=== PATIENT | male | born 1975 | race Caucasian/White ===

== ENCOUNTER 2016-11-17 00:25 | Emergency (ER) | payer BC ==
[~2016-11-17] VITALS: Ht 154.9 cm; Wt 94.2 kg
[~2016-11-17 00:25] MED LIST: ACIDTAB4 PO; ADVAI250I PO; ALBU1AER INH; AMLO5TAB22 PO; AZIT250T74 PO; BENZ1CAP34 PO; CEFT500T PO; IBUP600 PO; OXYC1SOL5 PO; PRED10 PO; ROBIACUDC PO; ZOLP10TA3 PO
[2016-11-17 00:34] VITALS: BP 161/111; PULSE 101; RESP 18; TEMP 98.1; O2SAT 98
[2016-11-17] MEDS ORDERED: SYMB80AE INH (01:06)
[2016-11-17] MEDS ORDERED: AMLO10TA2 PO (01:06)
[2016-11-17] MEDS ORDERED: ARIP1TAB7 PO (01:06)
[2016-11-17] MEDS ORDERED: PROZ20CA11 PO (01:06)
[2016-11-17] MEDS ORDERED: BUPR100CR PO (01:06)
[2016-11-17 01:10] VITALS: BP 161/111; PULSE 101; RESP 18; TEMP 98.1; O2SAT 98
[2016-11-17 01:20] VITALS: O2SAT 98
[2016-11-17] MEDS ORDERED: FAMOTIDINE 20 MG/2 ML VIAL IV PUSH ONE (01:30)
[2016-11-17] MEDS ORDERED: methylPREDNISolone SOD SUCC 125 MG/2 ML VIAL IM ONE (01:30)
[2016-11-17] MEDS ORDERED: SODIUM CHLORIDE 0.9% FLUSH 10 ML FLUSH IV FLUSH PRN (01:30)
[2016-11-17] MEDS ORDERED: diphenhydrAMINE HCL 50 MG/ML VIAL IVP ONE (01:30)
[2016-11-17 02:05] LABS: AUTOMATED NEUTROPHIL # 4.9 TH/MM3 (1.8-7.7); BASOPHIL # 0.1 TH/MM3 (0-0.2); BASOPHIL % 0.7 % (0.0-2.0); CHLORIDE 100 MEQ/L (98-107); EOSINOPHIL # 0.8 TH/MM3 (0-0.4); HEMO FLAGS DIFF FINAL; LYMPH % 17.5 % (9.0-44.0); LYMPHOCYTE # 1.4 TH/MM3 (1.0-4.8); MEAN CELL VOLUME 91.6 FL (80.0-100.0); MEAN CORPUSCULAR HEMOGLOBIN 31.7 PG (27.0-34.0); MEAN CORPUSCULAR HGB CONC 34.6 % (32.0-36.0); MONO % 9.5 % (0.0-8.0); NEUT % 62.3 % (16.0-70.0); PLATELET COUNT 328 TH/MM3 (150-450); POTASSIUM 3.7 MEQ/L (3.5-5.1); RED BLOOD COUNT 5.12 MIL/MM3 (4.50-5.90); RED CELL DISTRIBUTION WIDTH 12.1 % (11.6-17.2); SODIUM (NA) 137 MEQ/L (136-145)
[2016-11-17 02:09] LABS: ANION GAP 9 MEQ/L (5-15); BICARBONATE 27.7 MEQ/L (21.0-32.0); BLOOD UREA NITROGEN 12 MG/DL (7-18)
[2016-11-17 02:12] LABS: ALT (GPT) 33 U/L (12-78); AST (GOT) 26 U/L (15-37); GLOMERULAR FILTRATION RATE 92 ML/MIN (>89)
[2016-11-17 02:14] LABS: TOTAL BILIRUBIN ADULT 0.4 MG/DL (0.2-1.0)
[2016-11-17 02:15] LABS: ALKALINE PHOSPHATASE 63 U/L (45-117)
[2016-11-17] MEDS ORDERED: MEDR4PAK PO (02:56)
[2016-11-17] MEDS ORDERED: ZANT300T PO (02:56)
--- NOTE | 2016-11-17 03:01 | PD ---
HPI Chief Complaint: Skin Problem Time Seen by Provider: 01:30 Travel History International Travel<30 days: No Contact w/Intl Traveler<30days: No Traveled to known affect area: No History of Present Illness HPI 41-year-old male with one day of generalized pruritus and erythematous rash of uncertain etiology. No hives no lip tongue or throat swelling no shortness of breath no wheezing. Patient denies any recent antibiotic use or any medication use. Patient denies any known contact any new medications detergents lotions creams chemicals furniture clothing or plants. PFSH Past Medical History Narrative Medical Arthritis asthma depression hypertension migraines pneumonia occasional alcohol use nursing notes reviewed Arthritis: Yes (BACK,HANDS,HIPS,KNEES) Asthma: Yes Depression: Yes Cancer: No Cardiovascular Problems: Yes Diminished Hearing: No Endocrine: No Genitourinary: No Hypertension: Yes Immune Disorder: No Implanted Vascular Access Dvce: No Musculoskeletal: Yes Neurologic: Yes Psychiatric: Yes Reproductive: No Respiratory: Yes Migraines: Yes (BAD MIGRANES ABOUT 10 YEARS AGO) Pneumonia: Yes Sickle Cell Disease: No Tetanus Vaccination: < 5 Years Influenza Vaccination: Yes Past Surgical History Surgical History: No Previous Surgery Body Medical Devices: BLOOD CLOT LEFT SHOULDER IN 2002 Other Surgery: No Social History Alcohol Use: Yes (SOCIAL) Tobacco Use: No Substance Use: No Allergies-Medications (Allergen,Severity, Reaction): Coded Allergies: No Known Allergies (Verified , 11/17/16) Reported Meds & Prescriptions Reported Meds & Active Scripts Active Reported Abilify (Aripiprazole) 20 Mg Tab 20 Mg PO DAILY Wellbutrin SR 12 HR (Bupropion HCl) 100 Mg Tab 100 Mg PO Q12HR Amlodipine (Amlodipine Besylate) 10 Mg Tab 25 Mg PO DAILY Prozac (Fluoxetine HCl) 20 Mg Cap 20 Mg PO DAILY Symbicort Inh (Budesonide/Formoterol Fumarate) 80-4.5 Mcg/Act Aero 2 Puff INH Q12HR Review of Systems Except as stated in HPI: all other systems reviewed are Neg General / Constitutional: No: Fever, Chills HENT: No: Congestion Cardiovascular: No: Chest Pain or Discomfort Respiratory: No: Shortness of Breath, Wheezing Gastrointestinal: No: Nausea, Vomiting, Abdominal Pain Genitourinary: No: Flank Pain Musculoskeletal: No: Myalgias, Arthralgias Skin: Positive Rash, Positive Itching, No Lumps, No Hives Neurologic: No: Weakness Psychiatric: No: Anxiety Endocrine: No: Heat Intolerance Hematologic/Lymphatic: No: Easy Bruising Physical Exam Narrative GENERAL: Well-developed well-nourished male in no acute distress no respiratory distress; no stridor no hoarseness SKIN: Warm and dry. Diffuse erythematous confluent rash with excoriation extending over the upper extremities trunk and lower extremities no urticaria no vesicles no pustules no petechia no purpura HEAD: Normocephalic. EYES: No scleral icterus. No injection or drainage. ENT: Mucous membranes moist , airway is patent, no swelling of the lip tongue or posterior pharynx NECK: Supple, trachea midline. No JVD or lymphadenopathy. CARDIOVASCULAR: Regular rate and rhythm without murmurs, gallops, or rubs. RESPIRATORY: Breath sounds equal bilaterally. No accessory muscle use. GASTROINTESTINAL: Abdomen soft, non-tender, nondistended. MUSCULOSKELETAL: No cyanosis, or edema. BACK: Nontender without obvious deformity. No CVA tenderness. Data Data Last Documented VS Vital Signs Date Time Temp Pulse Resp B/P (MAP) Pulse Ox O2 Delivery O2 Flow Rate FiO2 11/17/16 01:10 98.1 101 18 161/111 (128) 98 Orders Orders Complete Blood Count With Diff (11/17/16 01:30) Comprehensive Metabolic Panel (11/17/16 01:30) Ecg Monitoring (11/17/16 01:30) Iv Access Insert/Monitor (11/17/16 01:30) Oximetry (11/17/16 01:30) Diphenhydramine Inj (Benadryl Inj) (11/17/16 01:30) Methylprednisolone So Succ Inj (Solumedr (11/17/16 01:30) Famotidine Inj (Pepcid Inj) (11/17/16 01:30) Sodium Chloride 0.9% Flush (Ns Flush) (11/17/16 01:30) Labs Laboratory Tests Test 11/17/16 01:20 White Blood Count 8.0 TH/MM3 Red Blood Count 5.12 MIL/MM3 Hemoglobin 16.2 GM/DL Hematocrit 47.0 % Mean Corpuscular Volume 91.6 FL Mean Corpuscular Hemoglobin 31.7 PG Mean Corpuscular Hemoglobin Concent 34.6 % Red Cell Distribution Width 12.1 % Platelet Count 328 TH/MM3 Mean Platelet Volume 7.8 FL Neutrophils (%) (Auto) 62.3 % Lymphocytes (%) (Auto) 17.5 % Monocytes (%) (Auto) 9.5 % Eosinophils (%) (Auto) 10.0 % Basophils (%) (Auto) 0.7 % Neutrophils # (Auto) 4.9 TH/MM3 Lymphocytes # (Auto) 1.4 TH/MM3 Monocytes # (Auto) 0.8 TH/MM3 Eosinophils # (Auto) 0.8 TH/MM3 Basophils # (Auto) 0.1 TH/MM3 CBC Comment DIFF FINAL Differential Comment Blood Urea Nitrogen 12 MG/DL Creatinine 0.90 MG/DL Random Glucose 107 MG/DL Total Protein 8.5 GM/DL Albumin 4.5 GM/DL Calcium Level 9.4 MG/DL Alkaline Phosphatase 63 U/L Aspartate Amino Transf (AST/SGOT) 26 U/L Alanine Aminotransferase (ALT/SGPT) 33 U/L Total Bilirubin 0.4 MG/DL Sodium Level 137 MEQ/L Potassium Level 3.7 MEQ/L Chloride Level 100 MEQ/L Carbon Dioxide Level 27.7 MEQ/L Anion Gap 9 MEQ/L Estimat Glomerular Filtration Rate 92 ML/MIN [facility] Medical Decision Making Medical Screen Exam Complete: Yes Emergency Medical Condition: Yes Medical Record Reviewed: Yes Differential Diagnosis Allergic reaction allergic dermatitis adverse medication reaction contact dermatitis also to consider Guerrero-Jesus syndrome TEN no findings for anaphylaxis or angioedema Narrative Course Patient administered Benadryl Pepcid and Solu-Medrol with marked symptomatic improvement and diminished erythema Patient stable for outpatient management and follow-up with primary care provider Diagnosis Primary Impression: Allergic dermatitis Referrals: Primary Care Physician call for appointment Patient Instructions: General Instructions Departure Forms: Tests/Procedures, Work Release Special Instructions: no work x 2 days Additional Instructions: No work 2 days Follow-up with your primary care provider Take Benadryl 25-50 mg as often as every 4-6 hours for rash or itching Complete course of steroid as prescribed Complete course of Zantac as prescribed Avoid overheating Increase fluid hydration Return to the emergency department for any concerns or change in condition Med/Other Pt SpecificInfo: Prescription(s) given Scripts Ranitidine (Zantac) 300 Mg Tab 300 MG PO DAILY for 14 Days, #14 TAB 0 Refills Prov: Rachel Gabriel MD 11/17/16 Methylprednisolone Dosepak (Medrol Dosepak) 4 Mg Dspk 4 MG PO DIRECTED, #1 DSPK 0 Refills Per Pharmacist direction Prov: Rachel Gabriel MD 11/17/16 Disposition: 01 DISCHARGE HOME Condition: Stable Rachel Gabriel MD Nov 17, 2016 03:00
[2016-11-17 03:26] VITALS: BP 136/82
[2016-11-18] MEDS ORDERED: CETI10 PO (19:48)
[2016-11-18] MEDS ORDERED: QUET5TAB PO (19:48)
[2016-11-18] MEDS ORDERED: QUET1TAB7 PO (19:48)
== END 2016-11-17 03:30 | disposition home or self-care (01) ==
LOC: PHED 00:25
DX: L30.9 Dermatitis, unspecified (principal)
CPT/HCPCS: 80053; 85025; 96372; 96374; 96375; 99284; J1200; J2930

== ENCOUNTER 2016-11-18 19:17 | Emergency (ER) | payer BC ==
[~2016-11-18] VITALS: Ht 185.4 cm; Wt 95.0 kg
[~2016-11-18 19:17] MED LIST changes: -ACIDTAB4 PO; -ADVAI250I PO; -ALBU1AER INH; +AMLO10TA2 PO; -AMLO5TAB22 PO; +ARIP1TAB7 PO; -AZIT250T74 PO; -BENZ1CAP34 PO; +BUPR100CR PO; -CEFT500T PO; -IBUP600 PO; +MEDR4PAK PO; -OXYC1SOL5 PO; -PRED10 PO; +PROZ20CA11 PO; -ROBIACUDC PO; +SYMB80AE INH; +ZANT300T PO; -ZOLP10TA3 PO
[2016-11-18 19:26] VITALS: BP 181/102; PULSE 99; RESP 18; TEMP 97.8; O2SAT 98
[2016-11-18] MEDS ORDERED: CETI10 PO (19:48)
[2016-11-18] MEDS ORDERED: QUET5TAB PO (19:48)
[2016-11-18] MEDS ORDERED: QUET1TAB7 PO (19:48)
--- NOTE | 2016-11-18 20:37 | PD ---
HPI Chief Complaint: Allergic/Adverse Reaction Time Seen by Provider: 20:21 Travel History International Travel<30 days: No Contact w/Intl Traveler<30days: No Traveled to known affect area: No History of Present Illness HPI 41-year-old male with 2 day of generalized pruritus and erythematous rash of uncertain etiology. No hives no lip tongue or throat swelling no shortness of breath no wheezing. Patient denies any recent antibiotic use or any medication use. Patient was seen and evaluated on 11/17/16 for this rash. He was put on steroids, Benadryl, H2 blockers. He reports symptoms improved with these medication but then returned several hours ago after eating gummy bears. PFSH Past Medical History Arthritis: Yes (BACK,HANDS,HIPS,KNEES) Asthma: Yes Anxiety: Yes Depression: Yes Cardiovascular Problems: Yes Diminished Hearing: No Endocrine: No Genitourinary: No Hypertension: Yes Immune Disorder: No Implanted Vascular Access Dvce: No Musculoskeletal: Yes Neurologic: Yes Psychiatric: Yes Respiratory: Yes Migraines: Yes (BAD MIGRANES ABOUT 10 YEARS AGO) Pneumonia: Yes Sickle Cell Disease: No Tetanus Vaccination: < 5 Years Influenza Vaccination: No ?: Not Past Surgical History Surgical History: No Previous Surgery Body Medical Devices: BLOOD CLOT LEFT SHOULDER IN 2002 Social History Alcohol Use: Yes (SOCIAL) Tobacco Use: No Substance Use: No Allergies-Medications (Allergen,Severity, Reaction): Coded Allergies: No Known Allergies (Verified , 11/18/16) Reported Meds & Prescriptions Reported Meds & Active Scripts Active Zantac (Ranitidine HCl) 300 Mg Tab 300 Mg PO DAILY 14 Days Medrol Dosepak (Methylprednisolone) 4 Mg Dspk 4 Mg PO DIRECTED Per Pharmacist direction Reported Cetirizine (Cetirizine HCl) 10 Mg Tab 10 Mg PO DAILY Quetiapine (Quetiapine Fumarate) 50 Mg Tab 50 Mg PO HS Quetiapine (Quetiapine Fumarate) 25 Mg Tab 25 Mg PO DAILY Wellbutrin SR 12 HR (Bupropion HCl) 100 Mg Tab 300 Mg PO DAILY Amlodipine (Amlodipine Besylate) 10 Mg Tab 5 Mg PO DAILY Prozac (Fluoxetine HCl) 20 Mg Cap 20 Mg PO DAILY Symbicort Inh (Budesonide/Formoterol Fumarate) 80-4.5 Mcg/Act Aero 2 Puff INH Q12HR Review of Systems Except as stated in HPI: all other systems reviewed are Neg General / Constitutional: No: Fever Eyes: No: Visual changes HENT: No: Headaches Cardiovascular: No: Chest Pain or Discomfort Respiratory: No: Shortness of Breath Gastrointestinal: No: Abdominal Pain Genitourinary: No: Dysuria Skin: Positive Rash Neurologic: No: Weakness Physical Exam Narrative GENERAL: Well-nourished, well-developed patient. SKIN: Focused skin assessment warm/dry. Diffuse erythematous rash across the trunk, upper/lower extremities. The rash does not involve the palms of the face , hand or feet. No hives or urticaria. HEAD: Normocephalic. EYES: No scleral icterus. No injection or drainage. THROAT: No pharyngeal injection, exudates, or tonsillar hypertrophy. Airway is patent. NECK: Supple, trachea midline. No JVD or lymphadenopathy. No meningismus CARDIOVASCULAR: Regular rate and rhythm without murmurs, gallops, or rubs. RESPIRATORY: Breath sounds equal bilaterally. No accessory muscle use. GASTROINTESTINAL: Abdomen soft, non-tender, nondistended. MUSCULOSKELETAL: No cyanosis, or edema. BACK: Nontender without obvious deformity. No CVA tenderness. Data Data Last Documented VS Vital Signs Date Time Temp Pulse Resp B/P (MAP) Pulse Ox O2 Delivery O2 Flow Rate FiO2 11/18/16 19:26 97.8 99 18 181/102 (128) 98 Orders Orders Diphenhydramine Inj (Benadryl Inj) (11/18/16 20:45) Dexamethasone Inj (Decadron Inj) (11/18/16 20:45) MDM Medical Decision Making Medical Screen Exam Complete: Yes Emergency Medical Condition: Yes Differential Diagnosis Allergic reaction versus allergic contact dermatitis versus viral exanthema versus Guerrero-Jesus syndrome versus other Narrative Course 41-year-old male presents emergency department for evaluation of a pruritic erythematous rash for 2 days. Patient was evaluated in the emergency department yesterday where he was treated with steroids and Benadryl. According to the providers note and patient reports symptoms improved after this medications but returned this evening after eating gummy bears. Patient's chief complaint is as pruritic rash. He denies any oral swelling or shortness of breath or wheezing. Patient's vital signs are stable and he is nontoxic appearing. He will be given a shot of steroids and Benadryl in the ER and observed Patient observed in the emergency department he reports symptom improvement after Benadryl and steroids. Patient will be instructed to continue his current treatment regimen and follow-up with the baster hand. Diagnosis Primary Impression: Rash and nonspecific skin eruption Referrals: baster hand Additional Instructions: Continue the Medrol Dosepak. Continue the Benadryl 25-50 mg every 6 hours as needed for itching. Continue the Zantac. Make an appointment for follow-up with an baster hand for allergy testing. Avoid gummy bear candies or any food colored with dye. Return to the emergency department if he developed new or worsening symptoms. Disposition: 01 DISCHARGE HOME Condition: Stable Yarelis Feldman Nov 18, 2016 20:37
[2016-11-18] MEDS ORDERED: diphenhydrAMINE HCL 50 MG/ML VIAL IM ONE (20:45)
[2016-11-18] MEDS ORDERED: DEXAMETHASONE SOD PHOS 4 MG/ML VIAL IM ONE (20:45)
== END 2016-11-18 22:12 | disposition home or self-care (01) ==
LOC: PHEFT 19:17
DX: L29.9 Pruritus, unspecified (principal); I10 Essential (primary) hypertension; J45.909 Unspecified asthma, uncomplicated; F41.9 Anxiety disorder, unspecified; F32.9 Major depressive disorder, single episode, unspecified; Z79.899 Other long term (current) drug therapy
CPT/HCPCS: 96372; 99284; J1100; J1200

== ENCOUNTER 2016-12-28 01:02 | Emergency (ER) | payer BC ==
[~2016-12-28] VITALS: Ht 185.4 cm; Wt 96.8 kg
[~2016-12-28 01:02] MED LIST changes: -ARIP1TAB7 PO; +CETI10 PO; +QUET1TAB7 PO; +QUET5TAB PO
[2016-12-28 01:05] VITALS: BP 164/103; PULSE 107; RESP 20; TEMP 98.3; O2SAT 97
[2016-12-28 01:34] VITALS: BP 148/90; PULSE 85; RESP 16; O2SAT 99
--- NOTE | 2016-12-28 01:52 | RADRPT ---
EXAM DATE/TIME: 12/28/2016 01:35 [facility] COMPARISON: No previous studies available for comparison. INDICATIONS : Right foot pain. MEDICAL HISTORY : None. SURGICAL HISTORY : None. ENCOUNTER: Initial ACUITY: 2 days PAIN SCORE: 5/10 LOCATION: Right foot FINDINGS: Three view examination of the right foot demonstrates no soft tissue swelling, dislocation, or fractu re. The tarsal bones appear intact. The interphalangeal and metatarsophalangeal joints are intact. The calcaneus is intact. Bony mineralization is normal. CONCLUSION: Unremarkable examination of the right foot. Baltazar Berumen MD on December 28, 2016 at 1:50 Board Certified Radiologist. This report was verified electronically.
[2016-12-28] MEDS ORDERED: IBUP1TAB7 PO (02:14)
--- NOTE | 2016-12-28 02:14 | PD ---
HPI Chief Complaint: Musculoskeletal Complaint Time Seen by Provider: 02:06 Travel History International Travel<30 days: No Contact w/Intl Traveler<30days: No Traveled to known affect area: No History of Present Illness HPI The patient is a 41-year-old male that complains of right foot pain for 2 days. He denies any trauma. 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 He does not have any fever. This never happened before. He can feel slight swelling in the right foot. PFSH Past Medical History Arthritis: Yes (BACK,HANDS,HIPS,KNEES) Asthma: Yes Anxiety: Yes Depression: Yes Cancer: No Cardiovascular Problems: Yes Diminished Hearing: No Endocrine: No Gastrointestinal Disorders: No Genitourinary: No Heparin Induced Thrombocytopen: No Hypertension: Yes Immune Disorder: No Implanted Vascular Access Dvce: No Musculoskeletal: Yes Neurologic: Yes Psychiatric: Yes Reproductive: No Respiratory: Yes Migraines: Yes (BAD MIGRANES ABOUT 10 YEARS AGO) Pneumonia: Yes Sickle Cell Disease: No ?: Not Past Surgical History Body Medical Devices: BLOOD CLOT LEFT SHOULDER IN 2002 Other Surgery: No Social History Alcohol Use: Yes (SOCIAL) Tobacco Use: No Substance Use: No Allergies-Medications (Allergen,Severity, Reaction): Coded Allergies: fluoxetine (Verified Allergy, Intermediate, 12/28/16) No Known Allergies (Verified Adverse Reaction, Unknown, 12/28/16) Reported Meds & Prescriptions Reported Meds & Active Scripts Active Reported Cetirizine (Cetirizine HCl) 10 Mg Tab 10 Mg PO DAILY Quetiapine (Quetiapine Fumarate) 25 Mg Tab 25 Mg PO DAILY Wellbutrin SR 12 HR (Bupropion HCl) 100 Mg Tab 300 Mg PO DAILY Amlodipine (Amlodipine Besylate) 10 Mg Tab 5 Mg PO DAILY Symbicort Inh (Budesonide/Formoterol Fumarate) 80-4.5 Mcg/Act Aero 2 Puff INH Q12HR Review of Systems Except as stated in HPI: all other systems reviewed are Neg Physical Exam Narrative GENERAL: The patient is alert, oriented 3 in slight distress with his right foot discomfort. His vital signs show blood pressure 160 4/03 but repeat is 148/90. The rest the vital signs are normal. SKIN: Focused skin assessment warm/dry. HEAD: Atraumatic. Normocephalic. EYES: Pupils equal and round. No scleral icterus. No injection or drainage. ENT: No nasal bleeding or discharge. Mucous membranes pink and moist. NECK: Trachea midline. No JVD. CARDIOVASCULAR: Regular rate and rhythm. No murmur appreciated. RESPIRATORY: No accessory muscle use. Clear to auscultation. Breath sounds equal bilaterally. GASTROINTESTINAL: Abdomen soft, non-tender, nondistended. Hepatic and splenic margins not palpable. MUSCULOSKELETAL: The right foot shows No obvious deformities, no erythema but slight swelling. He is tender over the plantar fascial area on the plantar side of the foot but also was tender on the dorsum of the foot from the second metatarsal laterally to the fifth metatarsal. He has no proximal fifth metatarsal tenderness. NEUROLOGICAL: Awake and alert. No obvious cranial nerve deficits. Motor grossly within normal limits. Normal speech. PSYCHIATRIC: Appropriate mood and affect; insight and judgment normal. Data Data Last Documented VS Vital Signs Date Time Temp Pulse Resp B/P (MAP) Pulse Ox O2 Delivery O2 Flow Rate FiO2 12/28/16 01:34 85 16 148/90 (109) 99 Room Air 12/28/16 01:05 98.3 Orders Orders Foot, Complete ([id number]) (12/28/16 ) [facility] Medical Decision Making Medical Screen Exam Complete: Yes Emergency Medical Condition: Yes Medical Record Reviewed: Yes Differential Diagnosis Plantar fasciitis, stress fracture, cellulitis Narrative Course The patient appears to have plantar fasciitis. He does have swelling on his foot and rather diffuse tenderness for plantar fasciitis. It is not a cellulitis and it is not hot to touch. He will be given a shot of Toradol and Motrin 800 mg 3 times daily. In addition he needs to rest for one week and elevate his foot above his heart. Additional Instructions: As we discussed, elevate your foot above the heart. Follow-up with a cafeteria worker , hopefully this week. Take the ibuprofen regularly, 1 tablet 3 times daily. Med/Other Pt SpecificInfo: Prescription(s) given Scripts Ibuprofen (Ibuprofen) 800 Mg Tab 800 MG PO TID, #33 TAB 0 Refills Prov: Hans Herrera MD 12/28/16 Disposition: 01 DISCHARGE HOME Condition: Stable Hans Herrera MD Dec 28, 2016 02:14
[2016-12-28] MEDS ORDERED: KETOROLAC TROMETHAMINE 60 MG/2 ML (IM) VIAL IM ONE (02:15)
[2016-12-28 02:37] VITALS: BP 178/89
== END 2016-12-28 02:40 | disposition home or self-care (01) ==
LOC: PHED 01:02
DX: M72.2 Plantar fascial fibromatosis (principal)
CPT/HCPCS: 73630; 96372; 99284; J1885